=== PATIENT | male | born 1945 | race African-American/Black ===

== ENCOUNTER 2022-04-28 10:55 | Emergency (ER) | payer OTHER ==
[~2022-04-28] VITALS: Ht 180.3 cm; Wt 95.0 kg
[2022-04-28] MEDS ORDERED: SODIUM CHLORIDE 0.9% 1,000 ML IV ONE (11:30)
[2022-04-28 15:53] LABS: BASOPHILS % 0.2 % (0.0-2.0); EOSINOPHILS % 0.2 % (0.0-5.0); HEMATOCRIT. 34.8 % (42.0-52.0); HEMOGLOBIN. 11.5 g/dL (14.0-18.0); LYMPHOCYTES % 28.1 % (20.0-50.0); MEAN CORPUSCULAR HEMOGLOBIN 28.3 pg (28.0-32.0); MEAN CORPUSCULAR VOLUME 85.9 fL (80.0-94.0); MEAN PLATELET VOLUME 9.2 fl (7.4-10.4); MONOCYTES % 5.1 % (2.0-8.0); NEUTROPHILS % 66.4 % (40.0-76.0); PLATELET 114 x1000/uL (130-400); RED BLOOD CELL COUNT 4.05 mill/uL (4.7-6.1); RED CELL DISTRIBUTION WIDTH 14.1 % (11.6-14.6)
[2022-04-28 15:58] LABS: CHLORIDE 105 mEq/L (98-107)
[2022-04-28 16:01] LABS: INR 1.1; PROTHROMBIN TIME 11.4 sec (9.6-11.0)
[2022-04-28 16:10] LABS: CREATINE KINASE 231 IU/L (39-308)
[2022-04-28 20:10] VITALS: BP 131/80
== END 2022-04-28 20:16 | disposition short-term general hospital (02) ==
LOC: ER 10:55
DX: U07.1 COVID-19 (principal); R55 Syncope and collapse; R41.82 Altered mental status, unspecified; Z88.0 Allergy status to penicillin
CPT/HCPCS: 36415; 70450; 71045; 80053; 82550; 82962; 83605; 84484; 85025; 85610; 87040; 87426; 93005; 96360; 96361; 99285; C9803; J7030

== ENCOUNTER 2023-05-07 14:55 | Emergency (ER) | payer OTHER ==
[~2023-05-07] VITALS: Ht 182.9 cm; Wt 73.0 kg
[~2023-05-07 14:55] MED LIST: CARB-324 MT; LEVO750T68 MT; MONT-46 MT
[2023-05-07 15:02] VITALS: O2SAT 98
[2023-05-07] MEDS ORDERED: ACETAMINOPHEN 650MG SUPP PR STA (15:03)
[2023-05-07] MEDS ORDERED: SODIUM CHLORIDE 0.9% 1000ML BAG (SEPSIS BOLUS) IV ONE (15:15)
[2023-05-07] MEDS ORDERED: MEROPENEM 1,000 MG in SODIUM CHLORIDE 0.9% 100 ML IV ONE (15:15)
[2023-05-07] MEDS ORDERED: VANCOMYCIN 1G PREMIX 200 ML IV ONE (15:15)
[2023-05-07 15:38] LABS: BG BASE EXCESS 5.4 mmol/L (-2.0-2.0); BG DEOXYHEMOGLOBIN 0.6 % (0.0-5.0); BG FRACTION INSPIRED OXYGEN 36; BG HCO3 ACT 28.7 mmol/L (22.0-26.0); BG METHEMOGLOBIN 0.1 % (0.0-1.5); BG OXYGEN SATURATION 99.4 % (92.0-98.5); BG OXYHEMOGLOBIN 98.3 % (94.0-97.0); BG PCO2 37.5 mmHg (35.0-45.0); BG PH 7.502 (7.350-7.450); BG PO2 162.1 mmHg (75.0-100.0); BG SAMPLE SITE LEFT RADIAL; BG TOTAL HEMOGLOBIN 12.6 g/dL (12.0-18.0); BG VENT MODE NASAL CANNULA
[2023-05-07 16:08] LABS: BASOPHILS % 0.3 % (0.0-2.0); EOSINOPHILS % 0.1 % (0.0-5.0); HEMATOCRIT. 36.4 % (42.0-52.0); HEMOGLOBIN. 11.8 g/dL (14.0-18.0); LYMPHOCYTES % 9.6 % (20.0-50.0); MEAN CORPUSCULAR HEMOGLOBIN 27.2 pg (28.0-32.0); MEAN CORPUSCULAR HGB CONC 32.4 g/dL (31.0-37.0); MEAN PLATELET VOLUME 7.4 fl (7.4-10.4); MONOCYTES % 5.6 % (2.0-8.0); NEUTROPHILS % 84.4 % (40.0-76.0); PLATELET 321 x1000/uL (130-400); RED BLOOD CELL COUNT 4.33 mill/uL (4.7-6.1); RED CELL DISTRIBUTION WIDTH 18.1 % (11.6-14.6); WHITE BLOOD COUNT 17.2 x1000/uL (4.5-11.0)
[2023-05-07 16:12] LABS: INR 1.2; PROTHROMBIN TIME 12.4 sec (9.6-11.0)
[2023-05-07 16:18] LABS: ALANINE AMINOTRANSFERASE < 7 IU/L (10-49); ALBUMIN 3.5 g/dL (3.2-4.8); ASPARTATE AMINOTRANSFERASE 13 IU/L (<34); BILIRUBIN TOTAL 1.4 mg/dL (0.1-1.0); CALCIUM 8.9 mg/dL (8.7-10.4); CARBON DIOXIDE 29 mEq/L (21-32); CHLORIDE 104 mEq/L (98-107); CREATININE 0.4 mg/dL (0.6-1.3); GLUCOSE 133 mg/dL (70-105); POTASSIUM 3.9 mEq/L (3.5-5.1); PROTEIN TOTAL 6.3 g/dL (6.0-8.3); SODIUM 138 mEq/L (136-145); TROPONIN I HIGH SENSITIVITY 7 ng/L (3.0-53); UREA NITROGEN BLOOD 14 mg/dL (9-23)
[2023-05-07 18:20] LABS: CLARITY URINE CLEAR (CLEAR); COLOR URINE PALE YELLOW (YELLOW); GLUCOSE URINE NEGATIVE (NEGATIVE); KETONES URINE NEGATIVE (NEGATIVE); LEUKOCYTE ESTERASE URINE 2+ (NEGATIVE); NITRITE URINE NEGATIVE (NEGATIVE); OCCULT BLOOD URINE 3+ (NEGATIVE); PROTEIN URINE 1+ (NEGATIVE); SPECIFIC GRAVITY URINE <1.005 (1.005-1.030); UROBILINOGEN URINE 0.2 E.U./dL (0.2-1.0)
[2023-05-07 18:46] LABS: RBC URINE 15-25 /hpf (0-2)
[2023-05-07 18:47] LABS: BACTERIA URINE NONE SEEN; SQUAMOUS EPITHELIAL CELL URINE RARE /lpf (RARE/1+)
[2023-05-07 20:11] VITALS: TEMP 100.9
[2023-05-07 23:31] VITALS: BP 112/71; PULSE 103; RESP 20
== END 2023-05-07 23:59 | disposition short-term general hospital (02) ==
LOC: ER 14:55
DX: A41.9 Sepsis, unspecified organism (principal); N39.0 Urinary tract infection, site not specified; R41.82 Altered mental status, unspecified; F03.90 Unspecified dementia, unspecified severity, without behavioral disturbance, psychotic disturbance, mood disturbance, and anxiety; Z86.73 Personal history of transient ischemic attack (TIA), and cerebral infarction without residual deficits
CPT/HCPCS: 99291; 96365; 70450; 71045; 96367; 80053; 81003; 82962; 83605; 85025; 85610; 86850; 86900; 86901; 87040; 87086; 87186; 84484; 87804 ×2; 36415; 84145; 82805; 82375; 93005; 36600; J2185; J3370; J7050; J7030

== ENCOUNTER 2023-05-31 17:50 | Emergency (ER) | payer OTHER ==
[~2023-05-31] VITALS: Ht 170.2 cm; Wt 67.0 kg
[2023-05-31 18:15] VITALS: O2SAT 97
[2023-05-31] MEDS ORDERED: ACETAMINOPHEN 650MG SUPP PR STA (19:42)
[2023-05-31] MEDS ORDERED: VANCOMYCIN 1G PREMIX 200 ML IV ONE (19:45)
[2023-05-31] MEDS ORDERED: CEFTRIAXONE 1GM PREMIX 50 ML IV ONE (19:45)
[2023-05-31] MEDS ORDERED: AZITHROMYCIN 500MG/250ML 250 ML IV ONE (19:45)
[2023-05-31] MEDS ORDERED: SODIUM CHLORIDE 0.9% 1000ML BAG (SEPSIS BOLUS) IV ONE (19:45)
[2023-05-31 20:24] LABS: BG BASE EXCESS 6.7 mmol/L (-2.0-2.0); BG CARBOXYHEMOGLOBIN 0.7 % (0.5-1.5); BG DEOXYHEMOGLOBIN 5.3 % (0.0-5.0); BG FRACTION INSPIRED OXYGEN 21; BG HCO3 ACT 30.8 mmol/L (22.0-26.0); BG METHEMOGLOBIN 0.3 % (0.0-1.5); BG OXYGEN SATURATION 94.6 % (92.0-98.5); BG OXYHEMOGLOBIN 93.7 % (94.0-97.0); BG PCO2 41.7 mmHg (35.0-45.0); BG PH 7.486 (7.350-7.450); BG PO2 69.5 mmHg (75.0-100.0); BG SAMPLE SITE RIGHT RADIAL; BG TOTAL HEMOGLOBIN 13.1 g/dL (12.0-18.0); BG VENT MODE ROOM AIR
[2023-05-31 22:26] LABS: BASOPHILS % 0.3 % (0.0-2.0); EOSINOPHILS % 0.7 % (0.0-5.0); HEMATOCRIT. 33.9 % (42.0-52.0); HEMOGLOBIN. 10.7 g/dL (14.0-18.0); LYMPHOCYTES % 11.6 % (20.0-50.0); MEAN CORPUSCULAR HGB CONC 31.7 g/dL (31.0-37.0); MEAN CORPUSCULAR VOLUME 82.1 fL (80.0-94.0); MEAN PLATELET VOLUME 7.6 fl (7.4-10.4); MONOCYTES % 3.7 % (2.0-8.0); NEUTROPHILS % 83.7 % (40.0-76.0); PLATELET 676 x1000/uL (130-400); RED BLOOD CELL COUNT 4.13 mill/uL (4.7-6.1); RED CELL DISTRIBUTION WIDTH 17.6 % (11.6-14.6); WHITE BLOOD COUNT 16.4 x1000/uL (4.5-11.0)
[2023-05-31 22:27] LABS: INR 1.1; PROTHROMBIN TIME 12.1 sec (9.6-11.0)
[2023-05-31 22:37] LABS: ALANINE AMINOTRANSFERASE 11 IU/L (10-49); ALBUMIN 3.5 g/dL (3.2-4.8); ASPARTATE AMINOTRANSFERASE 16 IU/L (<34); BILIRUBIN TOTAL 0.4 mg/dL (0.1-1.0); CALCIUM 9.4 mg/dL (8.7-10.4); CARBON DIOXIDE 30 mEq/L (21-32); CHLORIDE 100 mEq/L (98-107); CREATININE 0.4 mg/dL (0.6-1.3); GLUCOSE 106 mg/dL (70-105); PROTEIN TOTAL 7.8 g/dL (6.0-8.3); SODIUM 135 mEq/L (136-145); TROPONIN I HIGH SENSITIVITY 4 ng/L (3.0-53); UREA NITROGEN BLOOD 15 mg/dL (9-23)
[2023-06-01 01:08] VITALS: BP 123/86; PULSE 116; RESP 21
[2023-06-01 01:15] VITALS: TEMP 99.4
[2023-06-01] MEDS ORDERED: VANCOMYCIN 1G PREMIX 200 ML IV NR (01:15)
[2023-06-01] MEDS ORDERED: AZITHROMYCIN 500MG/250ML 250 ML IV NR (01:15)
[2023-06-01] MEDS ORDERED: CEFTRIAXONE 1GM PREMIX 50 ML IV NR (01:15)
== END 2023-06-01 01:41 | disposition short-term general hospital (02) ==
LOC: ER 17:50 → EDBEDREQ 19:51 → ER 06-01 01:41
DX: A41.9 Sepsis, unspecified organism (principal); J69.0 Pneumonitis due to inhalation of food and vomit; F03.90 Unspecified dementia, unspecified severity, without behavioral disturbance, psychotic disturbance, mood disturbance, and anxiety; Z86.73 Personal history of transient ischemic attack (TIA), and cerebral infarction without residual deficits
CPT/HCPCS: 99284; 71045; 80053; 83880; 83605; 85025; 85610; 86850; 86900; 86901; 87040; 84484; 36415; 84145; 82805; 82375; 36600; 96360; J7030

== ENCOUNTER 2023-09-01 21:06 | Emergency (ER) | payer OTHER ==
[~2023-09-01] VITALS: Ht 177.8 cm; Wt 72.0 kg
[2023-09-01 21:09] VITALS: O2SAT 96
[2023-09-01 22:51] LABS: BASOPHILS % 0.4 % (0.0-2.0); CLARITY URINE CLOUDY (CLEAR); COLOR URINE YELLOW (YELLOW); GLUCOSE URINE NEGATIVE (NEGATIVE); HEMATOCRIT. 40.5 % (42.0-52.0); HEMOGLOBIN. 13.2 g/dL (14.0-18.0); KETONES URINE NEGATIVE (NEGATIVE); LEUKOCYTE ESTERASE URINE 3+ (NEGATIVE); LYMPHOCYTES % 17.7 % (20.0-50.0); MEAN CORPUSCULAR HEMOGLOBIN 27.9 pg (28.0-32.0); MEAN CORPUSCULAR HGB CONC 32.5 g/dL (31.0-37.0); MEAN CORPUSCULAR VOLUME 85.9 fL (80.0-94.0); MEAN PLATELET VOLUME 7.9 fl (7.4-10.4); MONOCYTES % 3.8 % (2.0-8.0); NEUTROPHILS % 76.1 % (40.0-76.0); NITRITE URINE NEGATIVE (NEGATIVE); OCCULT BLOOD URINE NEGATIVE (NEGATIVE); PH URINE 6.5 (4.5-8.0); PLATELET 454 x1000/uL (130-400); PROTEIN URINE TRACE (NEGATIVE); RED BLOOD CELL COUNT 4.71 mill/uL (4.7-6.1); RED CELL DISTRIBUTION WIDTH 16.9 % (11.6-14.6); SPECIFIC GRAVITY URINE 1.014 (1.005-1.030); WHITE BLOOD COUNT 10.6 x1000/uL (4.5-11.0)
[2023-09-01 22:55] LABS: PROTHROMBIN TIME 11.6 sec (9.6-11.0)
[2023-09-01 22:57] LABS: *AMPHETAMINES SCREEN URINE NEGATIVE (NEGATIVE); *BARBITURATES SCREEN URINE NEGATIVE (NEGATIVE); *BENZODIAZEPINES SCREEN URINE NEGATIVE (NEGATIVE); *COCAINE SCREEN URINE NEGATIVE (NEGATIVE); CANNABINOID URINE SCREEN NEGATIVE (NEGATIVE); ECSTASY MDMA SCREEN URINE NEGATIVE (NEGATIVE); METHADONE URINE SCREEN Neg (NEGATIVE); OPIATES URINE SCREEN NEGATIVE (NEGATIVE); PHENCYCLIDINE URINE SCREEN NEGATIVE (NEGATIVE)
[2023-09-01 22:58] LABS: ALANINE AMINOTRANSFERASE < 7 IU/L (10-49); ALBUMIN 4.1 g/dL (3.2-4.8); ASPARTATE AMINOTRANSFERASE 14 IU/L (<34); BILIRUBIN TOTAL 0.4 mg/dL (0.1-1.0); CALCIUM 9.1 mg/dL (8.7-10.4); CARBON DIOXIDE 31 mEq/L (21-32); CHLORIDE 105 mEq/L (98-107); CREATINE KINASE 67 IU/L (46-171); CREATININE 0.5 mg/dL (0.6-1.3); GLUCOSE 113 mg/dL (70-105); POTASSIUM 4.3 mEq/L (3.5-5.1); PROTEIN TOTAL 7.9 g/dL (6.0-8.3); SODIUM 140 mEq/L (136-145); TROPONIN I HIGH SENSITIVITY 5 ng/L (3.0-53); UREA NITROGEN BLOOD 20 mg/dL (9-23)
[2023-09-01 22:59] LABS: ETHANOL BLOOD < 10 mg/dL (<10)
[2023-09-01 23:02] LABS: WBC URINE TNTC /hpf (0-2)
[2023-09-01 23:03] LABS: BACTERIA URINE 2+; RBC URINE 0-2 /hpf (0-2); SQUAMOUS EPITHELIAL CELL URINE FEW /lpf (RARE/1+)
[2023-09-01 23:10] LABS: AMMONIA 45 uMol/L (<32)
[2023-09-02] MEDS: SODIUM CHLORIDE 0.9% 500 ML IV ONE ×2 (00:51→04:50)
[2023-09-02] MEDS: LEVOFLOXACIN 750MG PREMIX 150 ML IV NR (00:53)
[2023-09-02 01:02] VITALS: TEMP 98.4
[2023-09-02 07:19] VITALS: BP 159/103; PULSE 112; RESP 17
== END 2023-09-02 07:43 | disposition short-term general hospital (02) ==
LOC: ER 21:06
DX: N39.0 Urinary tract infection, site not specified (principal); F10.129 Alcohol abuse with intoxication, unspecified; Z00.00 Encounter for general adult medical examination without abnormal findings; Z20.822 Contact with and (suspected) exposure to COVID-19; Z88.0 Allergy status to penicillin; Z98.890 Other specified postprocedural states; Z86.73 Personal history of transient ischemic attack (TIA), and cerebral infarction without residual deficits; Y90.0 Blood alcohol level of less than 20 mg/100 ml
CPT/HCPCS: 80053; 80305; 81003; 80320; 82140; 82550; 83880; 83605; 83690; 84443; 85025; 85610; 86850; 86900; 86901; 87040; 87086; 87186; 84484; 36415; 84145; 71045; 93005; 99285; 87426; 70450; 96365; 96366; J1956; J7040; G0480

== ENCOUNTER 2023-09-06 18:09 | Emergency (ER) | payer OTHER ==
[~2023-09-06] VITALS: Ht 172.7 cm; Wt 77.0 kg
[2023-09-06 18:10] VITALS: O2SAT 99
[2023-09-06] MEDS: SODIUM CHLORIDE 0.9% 1000ML BAG (SEPSIS BOLUS) IV ONE (18:49)
[2023-09-06] MEDS: CEFTRIAXONE 1GM/50ML 50 ML IV NR (19:00)
[2023-09-06 19:06] LABS: BG BASE EXCESS 6.8 mmol/L (-2.0-2.0); BG CARBOXYHEMOGLOBIN 1.2 % (0.5-1.5); BG DEOXYHEMOGLOBIN 4.6 % (0.0-5.0); BG FRACTION INSPIRED OXYGEN 28; BG HCO3 ACT 32.9 mmol/L (22.0-26.0); BG METHEMOGLOBIN 0.1 % (0.0-1.5); BG OXYGEN SATURATION 95.3 % (92.0-98.5); BG OXYHEMOGLOBIN 94.1 % (94.0-97.0); BG PCO2 52.9 mmHg (35.0-45.0); BG PH 7.412 (7.350-7.450); BG PO2 77.5 mmHg (75.0-100.0); BG SAMPLE SITE LEFT RADIAL; BG TOTAL HEMOGLOBIN 13.8 g/dL (12.0-18.0); BG VENT MODE NASAL CANNULA
[2023-09-06 20:16] LABS: CLARITY URINE CLOUDY (CLEAR); COLOR URINE YELLOW (YELLOW); GLUCOSE URINE NEGATIVE (NEGATIVE); KETONES URINE NEGATIVE (NEGATIVE); LEUKOCYTE ESTERASE URINE 3+ (NEGATIVE); NITRITE URINE POSITIVE (NEGATIVE); OCCULT BLOOD URINE TRACE (NEGATIVE); PH URINE 7.5 (4.5-8.0); PROTEIN URINE TRACE (NEGATIVE); SPECIFIC GRAVITY URINE 1.013 (1.005-1.030)
[2023-09-06 20:31] LABS: BACTERIA URINE 1+; CALCIUM OXALATE CRYSTALS URINE 1+ /lpf; RBC URINE 0-2 /hpf (0-2); SQUAMOUS EPITHELIAL CELL URINE FEW /lpf (RARE/1+); WBC URINE 25-50 /hpf (0-2)
[2023-09-06] MEDS: AZITHROMYCIN 500MG/250ML 250 ML IV SCH (22:15)
[2023-09-06 22:47] LABS: BASOPHILS % 0.3 % (0.0-2.0); EOSINOPHILS % 1.1 % (0.0-5.0); HEMATOCRIT. 41.3 % (42.0-52.0); HEMOGLOBIN. 13.6 g/dL (14.0-18.0); LYMPHOCYTES % 11.8 % (20.0-50.0); MEAN CORPUSCULAR HEMOGLOBIN 28.1 pg (28.0-32.0); MEAN CORPUSCULAR VOLUME 85.3 fL (80.0-94.0); MONOCYTES % 3.7 % (2.0-8.0); NEUTROPHILS % 83.1 % (40.0-76.0); PLATELET 316 x1000/uL (130-400); RED BLOOD CELL COUNT 4.83 mill/uL (4.7-6.1); RED CELL DISTRIBUTION WIDTH 16.7 % (11.6-14.6); WHITE BLOOD COUNT 15.7 x1000/uL (4.5-11.0)
[2023-09-06 22:57] LABS: PROTHROMBIN TIME 11.6 sec (9.6-11.0)
[2023-09-06 23:00] LABS: ALANINE AMINOTRANSFERASE < 7 IU/L (10-49); ALBUMIN 3.9 g/dL (3.2-4.8); ASPARTATE AMINOTRANSFERASE 14 IU/L (<34); BILIRUBIN TOTAL 0.7 mg/dL (0.1-1.0); CALCIUM 8.8 mg/dL (8.7-10.4); CARBON DIOXIDE 28 mEq/L (21-32); CHLORIDE 104 mEq/L (98-107); CREATININE 0.4 mg/dL (0.6-1.3); GLUCOSE 122 mg/dL (70-105); POTASSIUM 3.9 mEq/L (3.5-5.1); PROTEIN TOTAL 7.6 g/dL (6.0-8.3); SODIUM 138 mEq/L (136-145); TROPONIN I HIGH SENSITIVITY 7 ng/L (3.0-53); UREA NITROGEN BLOOD 15 mg/dL (9-23)
[2023-09-06 23:03] LABS: ETHANOL BLOOD < 10 mg/dL (<10)
[2023-09-07 01:03] LABS: TROPONIN I HIGH SENSITIVITY 6 ng/L (3.0-53)
[2023-09-07 01:40] VITALS: BP 114/80; PULSE 116; RESP 18; TEMP 98.9
[2023-09-07] MEDS ORDERED: PIPERACILLIN/TAZO 3.375G/50ML 50 ML IV SCH (06:00)
== END 2023-09-07 02:41 | disposition short-term general hospital (02) ==
LOC: ER 18:09 → CANBEDREQ 09-07 09:52
DX: J69.0 Pneumonitis due to inhalation of food and vomit (principal); G20.A1 Parkinson's disease without dyskinesia, without mention of fluctuations; Z86.73 Personal history of transient ischemic attack (TIA), and cerebral infarction without residual deficits; Z98.890 Other specified postprocedural states; Z88.0 Allergy status to penicillin
CPT/HCPCS: 80053; 81003; 80320; 83880; 83605; 85025; 85610; 87040; 87086; 87186; 84484 ×2; 87077; 36415; 84145; 71045; 82805; 82375; 93005; 96368; 96365; 96366; 99285; 36600; J0456; J0696; J7030; G0480

== ENCOUNTER 2023-09-13 18:51 | Inpatient (IN) | payer OTHER ==
[~2023-09-13] VITALS: Ht 182.9 cm; Wt 83.9 kg
[2023-09-13 19:48] LABS: HEMATOCRIT. 38.8 % (42.0-52.0); HEMOGLOBIN. 12.6 g/dL (14.0-18.0); MEAN CORPUSCULAR HEMOGLOBIN 28.1 pg (28.0-32.0); MEAN CORPUSCULAR HGB CONC 32.5 g/dL (31.0-37.0); MEAN CORPUSCULAR VOLUME 86.4 fL (80.0-94.0); MEAN PLATELET VOLUME 7.8 fl (7.4-10.4); PLATELET 292 x1000/uL (130-400); RED BLOOD CELL COUNT 4.49 mill/uL (4.7-6.1); RED CELL DISTRIBUTION WIDTH 16.6 % (11.6-14.6); WHITE BLOOD COUNT 14.3 x1000/uL (4.5-11.0)
[2023-09-13 19:50] LABS: DIFFERENTIAL COMMENT 1
[2023-09-13 19:58] LABS: PROTHROMBIN TIME 11.5 sec (9.6-11.0)
[2023-09-13 20:14] LABS: ALANINE AMINOTRANSFERASE < 7 IU/L (10-49); ASPARTATE AMINOTRANSFERASE 20 IU/L (<34); BILIRUBIN TOTAL 0.5 mg/dL (0.1-1.0); CALCIUM 8.9 mg/dL (8.7-10.4); CARBON DIOXIDE 28 mEq/L (21-32); CHLORIDE 104 mEq/L (98-107); CREATININE 0.5 mg/dL (0.6-1.3); GLUCOSE 148 mg/dL (70-105); POTASSIUM 4.9 mEq/L (3.5-5.1); PROTEIN TOTAL 7.7 g/dL (6.0-8.3); SODIUM 138 mEq/L (136-145); TROPONIN I HIGH SENSITIVITY 11 ng/L (3.0-53); UREA NITROGEN BLOOD 13 mg/dL (9-23)
[2023-09-13 20:23] LABS: PLATELET ESTIMATE NORMAL
[2023-09-13 20:24] LABS: ANISOCYTOSIS 1+
[2023-09-13] MEDS: SODIUM CHLORIDE 0.9% 1000ML BAG (SEPSIS BOLUS) IV ONE (20:24)
[2023-09-13] MEDS: ACETAMINOPHEN 650MG SUPP PR STA (20:35)
[2023-09-13] MEDS: VANCOMYCIN 1G PREMIX 200 ML IV ONE (20:35)
[2023-09-13] MEDS: ONDANSETRON HCL 4MG/2ML INJ IV STA (20:35)
[2023-09-13 20:42] LABS: BG BASE EXCESS 3.8 mmol/L (-2.0-2.0); BG CARBOXYHEMOGLOBIN 0.4 % (0.5-1.5); BG DEOXYHEMOGLOBIN 0.3 % (0.0-5.0); BG FRACTION INSPIRED OXYGEN 100; BG HCO3 ACT 29.4 mmol/L (22.0-26.0); BG METHEMOGLOBIN 0.3 % (0.0-1.5); BG OXYGEN SATURATION 99.7 % (92.0-98.5); BG PCO2 48.4 mmHg (35.0-45.0); BG PH 7.402 (7.350-7.450); BG PO2 248.6 mmHg (75.0-100.0); BG SAMPLE SITE RIGHT RADIAL; BG TOTAL HEMOGLOBIN 12.9 g/dL (12.0-18.0); BG VENT MODE MASK - NRB
[2023-09-13 21:43] LABS: CLARITY URINE CLEAR (CLEAR); COLOR URINE ORANGE (YELLOW); GLUCOSE URINE NEGATIVE (NEGATIVE); KETONES URINE NEGATIVE (NEGATIVE); LEUKOCYTE ESTERASE URINE TRACE (NEGATIVE); NITRITE URINE NEGATIVE (NEGATIVE); OCCULT BLOOD URINE 3+ (NEGATIVE); PROTEIN URINE 1+ (NEGATIVE); SPECIFIC GRAVITY URINE 1.012 (1.005-1.030)
[2023-09-13 22:05] LABS: BACTERIA URINE 1+
[2023-09-13 22:06] LABS: RBC URINE TNTC /hpf (0-2); SQUAMOUS EPITHELIAL CELL URINE FEW /lpf (RARE/1+); WBC URINE 0-2 /hpf (0-2)
[2023-09-14] VITALS (7 sets, daily range): BP systolic 120–155; BP diastolic 80–97; PULSE 65–102; RESP 11–17; TEMP 97–97.9
[2023-09-14] MEDS ORDERED: ACETAMINOPHEN 650MG/20.3ML UDC GT PRN (00:45)
[2023-09-14] MEDS ORDERED: ONDANSETRON HCL 4MG/2ML INJ IV PRN (00:45)
[2023-09-14] MEDS ORDERED: BUDESONIDE 0.5MG/2ML NEB HHN SCH (00:45)
[2023-09-14] MEDS ORDERED: IPRATROPIUM/ALBUTEROL 0.5-3(2.5)MG/3ML NEB HHN PRN (00:45)
[2023-09-14 01:07] LABS: TROPONIN I HIGH SENSITIVITY 33 ng/L (3.0-53)
[2023-09-14 05:25] LABS: BASOPHILS % 0.2 % (0.0-2.0); EOSINOPHILS % 0.5 % (0.0-5.0); HEMATOCRIT. 36.7 % (42.0-52.0); HEMOGLOBIN. 11.7 g/dL (14.0-18.0); LYMPHOCYTES % 13.7 % (20.0-50.0); MEAN CORPUSCULAR HEMOGLOBIN 27.3 pg (28.0-32.0); MEAN CORPUSCULAR VOLUME 85.2 fL (80.0-94.0); MEAN PLATELET VOLUME 7.7 fl (7.4-10.4); MONOCYTES % 2.4 % (2.0-8.0); NEUTROPHILS % 83.2 % (40.0-76.0); PLATELET 295 x1000/uL (130-400); RED CELL DISTRIBUTION WIDTH 16.6 % (11.6-14.6); WHITE BLOOD COUNT 15.6 x1000/uL (4.5-11.0)
[2023-09-14 05:51] LABS: ALANINE AMINOTRANSFERASE < 7 IU/L (10-49); ALBUMIN 3.9 g/dL (3.2-4.8); ASPARTATE AMINOTRANSFERASE 13 IU/L (<34); BILIRUBIN TOTAL 0.9 mg/dL (0.1-1.0); CALCIUM 8.8 mg/dL (8.7-10.4); CARBON DIOXIDE 31 mEq/L (21-32); CHLORIDE 106 mEq/L (98-107); CHOLESTEROL 123 mg/dL (<200); CREATININE 0.4 mg/dL (0.6-1.3); GLUCOSE 101 mg/dL (70-105); HDL CHOLESTEROL 40 mg/dL (>55); IRON 18 ug/dL (65-175); LDL CHOLESTEROL 67 mg/dL (5-100); PHOSPHORUS 2.7 mg/dL (2.5-4.9); POTASSIUM 3.9 mEq/L (3.5-5.1); PROTEIN TOTAL 7.4 g/dL (6.0-8.3); SODIUM 141 mEq/L (136-145); T4 FREE 1.01 ng/dL (0.89-1.76); THYROID STIMULATING HORMONE 0.87 uIU/mL (0.55-4.78); TOTAL IRON BINDING CAPACITY 284 ug/dl (250-425); TRIGLYCERIDE 53 mg/dL (0-150); UREA NITROGEN BLOOD 12 mg/dL (9-23)
[2023-09-14] MEDS: FOLIC ACID 1 MG, THIAMINE HCL 100 MG, MVI, ADULT NO.1 10 ML in DEXTROSE 5% WATER 1,000 ML IV NR (06:53)
[2023-09-14] MEDS: MEROPENEM 500MG/50ML 50 ML IV SCH (06:54)
[2023-09-14 06:55] LABS: FERRITIN 248 ng/mL (22-322); FOLIC ACID (FOLATE) SERUM > 20.00 ng/mL (>5.38); VITAMIN B12 SERUM 471 pg/mL (211-911)
[2023-09-14] MEDS: PANTOPRAZOLE 40MG DR TABLET PO SCH (07:50)
[2023-09-14] MEDS: NA PHOS,M-B/NA PHOS,DI-BA ENEMA 118ML PR NR (16:15)
[2023-09-14] MEDS ORDERED: LACTULOSE 20G/30ML UDC PO PRN (17:15)
[2023-09-14] MEDS ORDERED: BISACODYL 10MG SUPP PR PRN (17:15)
[2023-09-14] MEDS: INFLUENZA VACCINE 05/PF 0.5 ML SYRINGE IM ONE (20:55)
[2023-09-15] VITALS (12 sets, daily range): BP systolic 114–147; BP diastolic 79–100; PULSE 86–109; RESP 11–27; TEMP 97.8–99.6
[2023-09-15 06:25] LABS: BASOPHILS % 0.3 % (0.0-2.0); EOSINOPHILS % 4.3 % (0.0-5.0); HEMATOCRIT. 36.4 % (42.0-52.0); HEMOGLOBIN. 11.8 g/dL (14.0-18.0); LYMPHOCYTES % 16.5 % (20.0-50.0); MEAN CORPUSCULAR HEMOGLOBIN 27.7 pg (28.0-32.0); MEAN CORPUSCULAR HGB CONC 32.5 g/dL (31.0-37.0); MEAN CORPUSCULAR VOLUME 85.3 fL (80.0-94.0); MEAN PLATELET VOLUME 7.9 fl (7.4-10.4); MONOCYTES % 4.8 % (2.0-8.0); NEUTROPHILS % 74.1 % (40.0-76.0); PLATELET 253 x1000/uL (130-400); RED BLOOD CELL COUNT 4.26 mill/uL (4.7-6.1); RED CELL DISTRIBUTION WIDTH 16.5 % (11.6-14.6); WHITE BLOOD COUNT 10.5 x1000/uL (4.5-11.0)
[2023-09-15 07:22] LABS: CALCIUM 9.1 mg/dL (8.7-10.4); CARBON DIOXIDE 28 mEq/L (21-32); CHLORIDE 105 mEq/L (98-107); CREATININE 0.4 mg/dL (0.6-1.3); GLUCOSE 71 mg/dL (70-105); PHOSPHORUS 2.9 mg/dL (2.5-4.9); POTASSIUM 4.1 mEq/L (3.5-5.1); SODIUM 140 mEq/L (136-145); UREA NITROGEN BLOOD 8 mg/dL (9-23)
[2023-09-15] MEDS: DOCUSATE SODIUM SUGAR FREE 100MG/10ML UDC GT SCH (09:24)
[2023-09-15] MEDS ORDERED: MEROPENEM 1G/100ML 100 ML IV SCH (15:30)
[2023-09-15] MEDS ORDERED: CEFEPIME 2GM IN DEXT 5% 100ML IV SCH (16:45)
[2023-09-15] MEDS: CEFEPIME 2GM/100ML 100 ML IV SCH (18:21)
[2023-09-15] MEDS: VANCOMYCIN 1.5GM/250ML IV NR (20:19)
[2023-09-16] VITALS: BP 136/91; PULSE 99; RESP 16; TEMP 98.6
[2023-09-16 01:53] VITALS: BP 153/103; PULSE 108; TEMP 98.6; O2SAT 92
[2023-09-16] MEDS ORDERED: VANCOMYCIN 750MG/150ML IV SCH (08:00)
== END 2023-09-16 06:23 | disposition short-term general hospital (02) | DRG 871 ==
LOC: ER 18:51 → 5EST 22:31 → SUPCPDRO 23:22
PROVIDERS: ADMIT Internal Medicine; ATTEND Internal Medicine
DX: A41.9 Sepsis, unspecified organism (principal); G92.8 Other toxic encephalopathy; J69.0 Pneumonitis due to inhalation of food and vomit; J96.21 Acute and chronic respiratory failure with hypoxia; J96.22 Acute and chronic respiratory failure with hypercapnia; K92.0 Hematemesis; J44.0 Chronic obstructive pulmonary disease with (acute) lower respiratory infection; I42.9 Cardiomyopathy, unspecified; F02.80 Dementia in other diseases classified elsewhere, unspecified severity, without behavioral disturbance, psychotic disturbance, mood disturbance, and anxiety; G20.A1 Parkinson's disease without dyskinesia, without mention of fluctuations; K56.41 Fecal impaction; I49.9 Cardiac arrhythmia, unspecified; K57.30 Diverticulosis of large intestine without perforation or abscess without bleeding; K80.20 Calculus of gallbladder without cholecystitis without obstruction; D64.9 Anemia, unspecified; R13.12 Dysphagia, oropharyngeal phase; Z88.0 Allergy status to penicillin; Z86.711 Personal history of pulmonary embolism; Z86.73 Personal history of transient ischemic attack (TIA), and cerebral infarction without residual deficits; Z93.1 Gastrostomy status
CPT/HCPCS: 36415; 36600; 71045; 74176; 80048; 80053; 80061; 81003; 82375; 82607; 82728; 82746; 82805; 82962; 83540; 83550; 83605; 83735; 83880; 84100; 84145; 84439; 84443; 84484; 85025; 85044; 86850; 86900; 87077; 87186; 87804; 90686; 93005; 93306; 93970; 99291; J0692; J2185; J2405; J3370; J3411; J3490; J7030; J7070